=== PATIENT | female | born 1960 | race Hispanic/Latino ===

== ENCOUNTER 2019-11-14 05:06 | Emergency (ER) | payer BC, OTHER ==
[2019-11-14] MEDS ORDERED: Ondansetron PF 4 MG/2 ML Vial ONE (05:27)
[2019-11-14 05:42] LABS: #Basophils 0.1 thou/uL (0.0-0.2); #Lymphocytes 1.2 thou/uL (1.20-3.40); #Monocytes 0.7 thou/uL (0.11-0.59); #Neutrophils 13.8 thou/uL (1.40-6.50); %Basophils 0.7 % (0.0-1.0); %Lymphocytes 7.5 % (21.0-51.0); %Monocytes 4.3 % (0.0-10.0); %Neutrophils 87.4 % (42.0-75.0); Hemoglobin 15.6 g/dL (12.0-16.0); Mean Corpuscular HGB CONC 30.7 g/dL (32.0-36.0); Mean Corpuscular Hemoglobin 30.6 pg (27.0-31.0); Mean Corpuscular Volume 99.7 fL (78.0-98.0); Mean Platelet Volume 7.5 fL (7.4-10.4); Platelet Count 288 thou/uL (130-400); RBC Distribution Width 12.8 % (11.5-14.5); Red Blood Cell (RBC) Count 5.09 mill/uL (4.20-5.40); White Blood Cell (WBC) Count 15.7 thou/uL (4.8-10.8)
[2019-11-14 05:47] LABS: Base Excess-Venous -25.8 mmol/L (-2.0 to 3.0); Bicarbonate (HCO3v) 4.8 mmol/L (22.0-28.0); CO2 Tension (PvCO2) 20.7 mmHg (40.0-50.0); Calcium, Ionized 1.35 mmol/L (See Comments:); Chloride 113 mmol/L (98-107); Hemoglobin - Calc 17.2 g/dL (12.0-16.0); Potassium 3.9 mmol/L (3.5-5.1); Sodium 133 mmol/L (138-145); T. Carbon Dioxide 5.4 mmol/L (22.0-28.0); vO2 Saturation-calc 78.6 % (60.0-85.0)
[2019-11-14 05:48] LABS: ALT (SGPT) 13 U/L (8-55); AST (SGOT) 14 U/L (5-34); Albumin 4.6 g/dL (3.5-5.0); Alkaline Phosphatase 118 U/L (40-110); BUN (Urea Nitrogen) 18 mg/dL (9.8-20.1); Bilirubin, Total 0.3 mg/dL (0.2-1.2); Calc. Creatinine Clearance 0 mL/min (70-130); Calcium 9.2 mg/dL (7.8-10.44); Carbon Dioxide Less than 8 mmol/L (22-29); Chloride 106 mmol/L (98-107); Estimated GFR-MDRD 34; Globulin 4.6 g/dL (2.4-3.5); Glucose 461 mg/dL (70-105); Potassium 4.1 mmol/L (3.5-5.1); Protein, Total 9.2 g/dL (6.0-8.3); Sodium 136 mmol/L (136-145)
[2019-11-14] MEDS ORDERED: Insulin Regular 300 UNITS/3 ML VIAL ONE (05:53)
[2019-11-14 06:16] LABS: Magnesium 2.3 mg/dL (1.6-2.6)
[2019-11-14 07:39] LABS: Base Excess-Venous -28.2 mmol/L (-2.0 to 3.0); CO2 Tension (PvCO2) 20.9 mmHg (40.0-50.0); Hemoglobin - Calc 15.1 g/dL (12.0-16.0); Potassium 3.3 mmol/L (3.5-5.1); Sodium 141 mmol/L (138-145); vO2 Saturation-calc 73.1 % (60.0-85.0)
[2019-11-14 07:40] LABS: Calcium, Ionized 1.31 mmol/L (See Comments:); Chloride 118 mmol/L (98-107); T. Carbon Dioxide Less than 5.0 mmol/L (22.0-28.0)
[2019-11-14 07:51] LABS: Bilirubin Small (Negative); Blood, Urine Moderate (Negative); Clarity Slightly Cloudy (Clear); Glucose, Urine (Dipstick) 500 mg/dL (Negative); Ketone, Urine > or equal to 80 mg/dL (Negative); Leukocyte Negative (Negative); Nitrite Negative (Negative); Protein, Urine (Dipstick) 100 mg/dL (Neg-Trace); Specific Gravity, Urine 1.025 (1.005-1.030); Urobilinogen 0.2 mg/dL (Less than 2)
[2019-11-14 08:01] LABS: Bacteria/HPF 1+ HPF (None Seen); Mucous/LPF Rare LPF (<2+); RBC/HPF 0-3 HPF (0-3); Squamous Epithelial 0-3 HPF (0-3)
[2019-11-14] MEDS ORDERED: cefTRIAXone\\ROCEPHIN 1 GM VIAL ONE (08:13)
--- NOTE | 2019-11-14 09:28 | CT ---
PRELIMINARY REPORT/[facility]/EMERGENCY AFTER HOURS PROCEDURE: EXAM: CT Head Without Intravenous Contrast. CLINICAL HISTORY: FALL ABRASSION BETWEEN HER EYES TECHNIQUE: Axial computed tomography images of the head/brain without intravenous contrast. COMPARISON: None provided. FINDINGS: BRAIN: There is no intracranial hemorrhage. Mild cerebral atrophy. There is appearance of empty sella with p rominent CSF in the sella. VENTRICLES: No hydrocephalus. ORBITS: The orbits are unremarkable. SINUSES AND MASTOIDS: The paranasal sinuses and mastoid air cells are clear. SOFT TISSUES: No significant facial or scalp soft tissue swelling evident. No radiopaque foreign body is seen. BONES: No acute skull fracture. IMPRESSION: No acute intracranial abnormality. ELECTRONICALLY SIGNED BY: Patricia Henry MD Nov 14, 2019 6:19:19 AM CDT This report is intended for review by the ordering physician only, in accordance of law. If you recei ve this report in error, please call [facility] at [phone]. FINAL REPORT CT OF THE BRAIN WITHOUT CONTRAST: Date: 11/14/[address] of the brain shows normal sized ventricles with no shift. No intracranial bleeding or extra -axial hematoma seen. There is no sign of stroke, mass, or edema. The skull appears intact. The visib le paranasal sinuses are clear. The mastoid air cells are clear. The patient has a empty sella. IMPRESSION: No acute intracranial findings. Report in agreement with preliminary reading by [facility]. POS: HOME
== END 2019-11-14 08:30 | disposition short-term general hospital (02) ==
LOC: BURERS 05:06
DX: S00.33XA Contusion of nose, initial encounter (principal); S09.90XA Unspecified injury of head, initial encounter; E11.10 Type 2 diabetes mellitus with ketoacidosis without coma; N39.0 Urinary tract infection, site not specified; E03.9 Hypothyroidism, unspecified; E78.5 Hyperlipidemia, unspecified; I10 Essential (primary) hypertension; Z79.899 Other long term (current) drug therapy; Z79.84 Long term (current) use of oral hypoglycemic drugs; Z79.82 Long term (current) use of aspirin; W19.XXXA Unspecified fall, initial encounter
CPT/HCPCS: 36416; 70450; 80053; 81003; 81015; 82330; 82553; 82803; 83735; 84484; 85025; 93005; 94760; 96365; 96366; 96367; 96368; 96374; 96376; 36415-59; J0696; J1815; J2405

== ENCOUNTER 2020-02-23 15:20 | Emergency (ER) | payer OTHER ==
[2020-02-23] MEDS ORDERED: Ondansetron ODT 4 MG TAB ONE (15:59)
[2020-02-23 16:08] LABS: Bilirubin Negative (Negative); Blood, Urine Small (Negative); Clarity Cloudy (Clear); Glucose, Urine (Dipstick) Negative (Negative); Ketone, Urine 80 mg/dL (Negative); Leukocyte Small (Negative); Nitrite Negative (Negative); Protein, Urine (Dipstick) 100 mg/dL (Neg-Trace); Specific Gravity, Urine 1.025 (1.005-1.030); Urobilinogen 0.2 mg/dL (Less than 2); pH, Urine 5.5 (5.0-9.0)
[2020-02-23 16:14] LABS: Bacteria/HPF 4+ HPF (None Seen); Renal Epithelial 0-3 HPF (None Seen); Squamous Epithelial 0-3 HPF (0-3); WBC/HPF Greater Than 50 HPF (0-3)
--- NOTE | 2020-02-23 16:52 | RAD ---
CHEST TWO VIEWS: Date: 02-23-2020 Comparison: 03-18-2010 FINDINGS: The heart is normal in size and the lungs are clear. No acute infiltrate or effusion was seen. There is no vascular congestion or edema. Mild degenerative changes are seen in the spine. IMPRESSION: No acute thoracic findings. POS: HOME
[2020-02-23] MEDS ORDERED: Sulfameth/Trimethoprim DS 800-160mg TAB ONE (16:56)
== END 2020-02-23 17:00 | disposition home or self-care (01) ==
LOC: BURERS 15:20
DX: N39.0 Urinary tract infection, site not specified (principal); M54.6 Pain in thoracic spine
CPT/HCPCS: 36416; 71046; 81003; 81015; 87077; 87086; 87186; Q0162